=== PATIENT | female | born 1950 | race Two or more races ===

== ENCOUNTER 2017-06-24 05:15 | Day surgery (SDC) | payer OTHER ==
[~2017-06-24 05:15] MED LIST: LEVO-T25 MCG PO; LOVASTATIN40 MG PO; RESTORIL30 M1 PO
[2017-06-24] MEDS ORDERED: MACROBID 100 M100 MG PO (09:11)
[2017-06-24] MEDS ORDERED: ULTRACET PO (09:11)
== END 2017-06-24 11:20 | disposition home or self-care (01) ==
LOC: CIR.AMB 05:15
DX: N81.11 Cystocele, midline (principal); N81.5 Vaginal enterocele; N81.6 Rectocele

== ENCOUNTER 2020-09-12 05:15 | Day surgery (SDC) | payer OTHER ==
[~2020-09-12 05:15] MED LIST changes: +COZAAR50 MG PO; +MACROBID 100 M100 MG PO; +TRILIPIX135 MG PO; +ULTRACET PO
[2020-09-12] MEDS ORDERED: MACROBID 100 M100 MG PO (11:15)
[2020-09-12] MEDS ORDERED: ULTRACET PO (11:16)
== END 2020-09-12 12:45 | disposition home or self-care (01) ==
LOC: CIR.AMB 05:15
PROVIDERS: ATTEND Obstetrics & Gynecology Gynecology
DX: N81.3 Complete uterovaginal prolapse (principal); Z20.822 Contact with and (suspected) exposure to COVID-19